=== PATIENT | male | born 1985 | race Caucasian/White ===

== ENCOUNTER 2019-10-18 15:08 | Emergency (ER) | payer OTHER ==
[~2019-10-18] VITALS: Ht 188 cm; Wt 109.0 kg
[2019-10-18] MEDS ORDERED: HYDROcodone/APAP 10/325 1 TAB TABLET PO ONE (15:30)
[2019-10-18] MEDS ORDERED: IBUPROFEN 600 MG TABLET. PO ONE (15:30)
--- NOTE | 2019-10-18 15:47 | RAD ---
CHEST AP ONLY, CLAVICLE LEFT 10/18/2019 3:20 PM INDICATION: Left clavicle pain COMPARISON: None available TECHNIQUE: Portable frontal view of the chest is provided. 3 views of the left clavicle are provided. FINDINGS: The cardiomediastinal silhouette is within normal limits. Lungs are clear. There are no significant pleural effusions. There is no pulmonary vascular congestion. No pneumothorax. There is a comminuted fracture involving the middle one third of the left clavicle with overriding of the fracture fragments by approximately 2.7 cm. There is a displaced fracture fragment measuring 1.8 cm. Adjacent ribs are intact. IMPRESSION: 1. There is a fracture involving the middle one third of left clavicle with overriding of the fracture fragments. No pneumothorax. 2. No acute cardiopulmonary process. Electronically signed by: Wandy Hart MD (10/18/2019 3:44 PM) [facility]
[2019-10-18] MEDS ORDERED: HYDR-3165 PO (15:51)
[2019-10-18] MEDS ORDERED: IBUP-1673 PO (15:51)
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
[2019-10-18 16:03] VITALS: BP 136/91
== END 2019-10-18 16:34 | disposition home or self-care (01) ==
LOC: ER 15:08
DX: S42.022A Displaced fracture of shaft of left clavicle, initial encounter for closed fracture (principal); V29.9XXA Motorcycle rider (driver) (passenger) injured in unspecified traffic accident, initial encounter; Y93.89 Activity, other specified; Y92.89 Other specified places as the place of occurrence of the external cause; Y99.8 Other external cause status
CPT/HCPCS: 70450; 71045; 72125; 73000; 99284; 99285

== ENCOUNTER → 2019-11-20 | Outpatient (CLI) | payer OTHER ==
[~2019-11-20] MED LIST: HYDR-3165 PO; IBUP-1673 PO
--- NOTE | 2019-11-20 14:31 | RAD ---
Left clavicle 2 views INDICATION: Closed displaced fracture of left clavicle. COMPARISON: 10/18/2019 left clavicle x-rays FINDINGS: Redemonstrated is a mid shaft comminuted left clavicular fracture with caudal displacement of the distal fracture fragment and override of approximately 4 cm. The smaller fracture fragments are less distinct on this exam.. There is mild softening of the fracture margins with suggestion of early bone formation. Significant osseous bridging and healing however is not shown. No worsening displacement. No new fractures or aggressive osseous lesions otherwise seen. IMPRESSION: Displaced mid shaft left clavicular fracture with findings of early healing. Electronically signed by: Viktor Newby MD (11/20/2019 2:28 PM) [id number]
== END | disposition home or self-care (01) ==
LOC: RAD 13:05
PROVIDERS: ATTEND Physician Assistant
DX: S42.022A Displaced fracture of shaft of left clavicle, initial encounter for closed fracture (principal); X58.XXXA Exposure to other specified factors, initial encounter; Y93.89 Activity, other specified; Y92.89 Other specified places as the place of occurrence of the external cause; Y99.8 Other external cause status
CPT/HCPCS: 73000

== ENCOUNTER → 2019-12-31 | Outpatient (CLI) | payer OTHER ==
--- NOTE | 2019-12-31 11:34 | RAD ---
EXAMINATION: CLAVICLE LEFT CLINICAL HISTORY: Follow up left clavicle fracture TECHNIQUE: CLAVICLE LEFT Number of Images/Views: 2 COMPARISON: 11/20/2019, 10/18/2019 FINDINGS: Displaced midclavicular fracture remains in similar alignment with increased callus formation, consistent with healing. No acute fracture. Acromioclavicular joint maintained. IMPRESSION: Healing left midclavicular fracture. Electronically signed by: Shoaib Crabtree DO (12/31/2019 11:32 AM) [id number]
== END ==
LOC: RAD 08:33
PROVIDERS: ATTEND Physician Assistant
DX: S42.022D Displaced fracture of shaft of left clavicle, subsequent encounter for fracture with routine healing (principal); X58.XXXD Exposure to other specified factors, subsequent encounter
CPT/HCPCS: 73000

== ENCOUNTER → 2020-02-13 | Outpatient (CLI) | payer OTHER ==
--- NOTE | 2020-02-13 08:47 | RAD ---
INDICATION: Reason: Follow up Hx: Fracture / Spl. Instructions: / History: COMPARISON: December 31, 2019 IMPRESSION: Left clavicle: 2 views obtained. Repeat demonstration of a displaced midshaft fracture of the left clavicle with some callus formation but the fracture does not have complete osseous fusion at this time. Electronically signed by: Jose Antonio Theodore MD (02/13/2020 8:45 AM) [id number]
== END ==
LOC: DXRAD 08:16
PROVIDERS: ATTEND Physician Assistant
DX: S42.022D Displaced fracture of shaft of left clavicle, subsequent encounter for fracture with routine healing (principal); X58.XXXD Exposure to other specified factors, subsequent encounter
CPT/HCPCS: 73000